=== PATIENT | female | born 1965 | race Caucasian/White ===

== ENCOUNTER 2017-01-22 09:19 | Emergency (ER) | payer BC ==
[~2017-01-22 09:19] MED LIST: ASPIRIN81 M1 PO; COMBIGAN EYE DRO5 M1 EACH EYE; GLAUCOMA GTT; LEVOTHYROXINE100 MC1 PO; SEROQUEL25 M2 PO; THYROID; XALATAN2.5 M1 EACH EYE
== END 2017-01-22 10:51 | disposition left against medical advice (07) ==
LOC: EDMED 09:19
DX: Z53.21 Procedure and treatment not carried out due to patient leaving prior to being seen by health care provider (principal)